=== PATIENT | male | born 1955 | race Caucasian/White ===

== ENCOUNTER 2024-01-28 11:56 | Emergency (ER) | payer SELFPAY ==
[2024-01-28 12:08] VITALS: BP 184/104; PULSE 76; RESP 18; TEMP 36.4; O2SAT 99; BMI 28.7
--- NOTE | 2024-01-28 12:19 | ECG_ITS ---
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 Measurements Intervals [place] Rate: 63 P: 68 NV: 148 QRS: 53 QRSD: 84 T: 53 QT: 429 QTc: 441 Interpretive Statements SINUS RHYTHM No previous ECG available for comparison Electronically Signed On 01-28-2024 14:05:51 CDT by Fabián Fontaine M.D. [id number]
--- NOTE | 2024-01-28 12:43 | ED_ITS ---
HPI - General Adult 2 General: Chief complaint: Recheck/Abnormal Lab/Rx Stated complaint: High BP Time Seen by Provider: 01/28/24 12:29 Source: patient Mode of arrival: ambulatory Limitations: no limitations History of Present Illness: Patient is a nice 68-year-old male who presents to ED today with complaint of hypertension. Patient states he was diagnosed with hypertension a few years ago and placed on Lisinopril 5mg. Looking at previous documentation notes like this was completed in 2020. He at some point had medication titrated up to 10mg daily and that is the dose he has been on for at least a year now. He states he does not routinely check his blood pressure however over the past few weeks he has not felt right stating he just feels blah and tired. He reportedly began checking his blood pressures and over the past several weeks they have continuously ran high some of which over 200s systolics. Patient states he took it upon himself and doubled his lisinopril dose to 20mg daily. He states blood pressures were still running high but he could sometimes get them 140s to 160s systolic with this dose. He denies chest pain, shortness of breath or difficulty breathing. He does not complain of a headache or visual changes. Onset (ago): week(s) Exacerbating factors: none Associated symptoms: Reports no associated symptoms; Deny chest pain, confusion, dyspnea, headache(s), malaise, palpitations or syncope Treatments prior to arrival: none Related Data Previous Rx's Medication Instructions Recorded amlodipine 5 mg tablet 5 mg PO DAILY #30 tabs 01/28/24 lisinopril 10 mg tablet 20 mg (2 x 10 mg) PO DAILY #60 tabs 01/28/24 Allergies Allergy/AdvReac Type Severity Reaction Status Date / Time No Known Allergies Allergy Verified 01/28/24 12:13 Review of Systems 2 Const: Reports: fatigue; Denies: fever(s), chills, body aches or malaise Eyes: Denies: change in vision, blurry vision, floaters or seeing flashes Card: Denies: chest pain, palpitations, edema, lightheadedness, syncope or pre-syncope Resp: Denies: dyspnea GI: Denies: abdominal pain Musc: Denies: back pain Neuro: Denies: headache(s), weakness in extremities, dizziness, confusion, behavioral changes, Slurred speech present or difficulty communicating thoughts PFSH ED 2 PFSH: Social History Smoking and tobacco/nicotine status: current every day tobacco/nicotine user Physical Exam 2 Const: COMMON NORMALS: no acute distress, average body habitus, patient oriented x3, no limitations, healthy appearing, alert and well nourished G ENERAL APPEARANCE: cooperative ORIENTATION/CONSCIOUSNESS: Yes awake, Yes oriented to person, Yes oriented to place and Yes oriented to time HENMT: FACE & SINUS: face symmetric Eye: GENERAL EYE: appearance normal, both eyes and all related structures and normal light reflex DIRECT OPHTHALMOSCOPY: Yes normal light reflex Neck/C-Spine: COMMON NORMALS: no JVD Resp: COMMON NORMALS: normal respiratory effort and clear to auscultation bilaterally AUSCULTATION: clear to auscultation bilaterally Cardio: COMMON NORMALS: no JVD, regular rate and regular rhythm RATE: r egular rate RHYTHM: regular rhythm Neuro: ELLIOTT COMA SCALE: document GCS findings Elliott coma scale eye opening: Spontaneous Elliott coma scale verbal response: Orientated Elliott coma scale motor response: Obey commands Elliott coma scale total score: 15 COMMON NORMALS: patient oriented x3, CN's II-XII intact bilaterally, moves all extremities, no focal motor deficits, no sensory deficits noted and gait normal SENSORIUM/ORIENTATION: Yes alert, Yes oriented to person, Yes oriented to place and Yes oriented to time Course 2 Vital Signs: Vital signs: Vital Signs Temperature 97.6 F 01/28/24 12:08 Pulse Rate 62 01/28/24 13:48 Respiratory Rate 16 01/28/24 13:48 Blood Pressure 161/100 01/28/24 13:48 Pulse Oximetry 97 01/28/24 13:48 Oxygen Delivery Me thod Room Air 01/28/24 13:23 MDM - General Adult Medical Decision Making Patient has no signs and symptoms consistent with a hypertensive emergency. He has longstanding/chronic hypertension. We will have him stay on his 20mg lisinopril that he has been doing over the last few weeks and add 5mg amlodipine. Recommend continue blood pressure log and follow-up with primary care in a week or so so they can further adjust medications based on response. Medical Records I reviewed the patient's medical records. Lab Data I reviewed the patient's lab results. 01/28/24 12:01/28/24 12: Laboratory Results WBC 7.62 10^3/uL (3.29-11.43) 01/28/24 12: RBC 5.38 10^6/uL (3.85-5.65) 01/28/24 12: Hgb 15.80 g/dL (11.27-16.99) 01/28/24 12: Hct 48.4 % (37-53) 01/28/24 12: MCV 90.0 fl (82-101) 01/28/24 12: MCH 29.4 pg (27-33) 01/28/24 12: MCHC 32.6 g/dL (30-55) 01/28/24 12: RDW 13.6 % (12.1-15.1) 01/28/24 12: Plt Count 284 10^3/cmm (157-399) 01/28/24 12: MPV 9.5 fL (7.4-10.4) 01/28/24 12: Neut % (Auto) 57.7 % 01/28/24 12: Lymph % (Auto) 31.5 % 01/28/24 12: [place] % (Auto) 8.1 % 01/28/24 12: Eos % (Auto) 1.4 % 01/28/24 12: Baso % (Auto) 0.9 % 01/28/24 12: Neut # (Auto) 4.39 10^3/uL (1.8-7.7) 01/28/24 12: Lymph # (Auto) 2.4 10^3/uL (0.8-4.8) 01/28/24 12:25 [place] # (Auto) 0.6 10^3/uL (0.2-0.9) 01/28/24 12: Eos # (Auto) 0.1 10^3/uL (0.0-0.8) 01/28/24 12: Baso # (Auto) 0.1 10^3/uL (0.0-0.1) 01/28/24 12: Nucleated RBC % (auto) 0 % 01/28/24 12:25 Nucleated RBCs # 0.0 /100WBC 01/28/24 12:25 Sodium 142 mmol/L (136-145) 01/28/24 12:25 Potassium 3.8 mmol/L (3.5-5.1) 01/28/24 12:25 Chloride 105 mmol/L (98-107) 01/28/24 12:25 Carbon Dioxide 27 mmol/L (22-29) 01/28/24 12:25 Anion Gap 13.8 (5-19) 01/28/24 12:25 BUN 15 mg/dL (8-23) 01/28/24 12:25 Creatinine 1.1 mg/dL (0.7-1.2) 01/28/24 12:25 GFR Calculation 66.8 mL/min (90-130) L 01/28/24 12:25 Glucose 99 mg/dL (65-115) 01/28/24 12:25 Calculated Osmolality 295 mOsm/kg (285-295) 01/28/24 12:25 Calcium 9.0 mg/dL (8.5-10.5) 01/28/24 12:25 Total Bilirubin 0.3 mg/dL (0.15-1.2) 01/28/24 12:25 AST 24 U/L (0-40) 01/28/24 12:25 ALT 25 U/L (0-41) 01/28/24 12:25 Alkaline Phosphatase 141 U/L (40-130) H 01/28/24 12:25 Total Protein 7.0 g/dL (6.6-8.7) 01/28/24 12:25 Albumin 4.1 g/dL (3.5-5.2) 01/28/24 12:25 Globulin 2.9 g/dL (1.3-4.6) 01/28/24 12:25 No radiology studies performed this visit Discharge Plan Discharge Patient Disposition: Home Clinical Impression: Hypertension Qualifiers: Hypertension type: unspecified Qualified Code(s): I10 - Essential (primary) hypertension Condition: Stable Prescriptions: New amlodipine 5 mg tablet 5 mg PO DAILY Qty: 30 0RF Changed lisinopril 10 mg tablet 20 mg PO DAILY Qty: 60 0RF Discharge Orders: Discharge ED (Routine); Ordered 01/28/24 Ordered By: Nallely Coles Referrals: Francois Marroquin MD [Primary Care Provider] - Patient Instructions: Chronic Hypertension (DC), Hypertension (ED) Activity Restrictions/Additional Instructions: As we discussed, we will change her blood pressure medication regimen and I want you to keep a blood pressure log over the next 1 to 2 weeks and follow-up with primary care so they can further adjust based on response. Need to return to the emergency department for severe chest pain, shortness of breath, difficulty breathing, headache, visual changes, severe abdominal pain, or any other concerns you may have. Coding Level of Care Code ED Underwriting Support Specialist for Dea Amaro
[2024-01-28 12:46] LABS: Basophils # 0.1 10^3/uL (0.0-0.1); Basophils % 0.9 %; Eosinophils # 0.1 10^3/uL (0.0-0.8); Eosinophils % 1.4 %; Hematocrit 48.4 % (37-53); Lymphocytes # 2.4 10^3/uL (0.8-4.8); Lymphocytes % 31.5 %; Mean Corpuscular HGB Conc 32.6 g/dL (30-55); Mean Corpuscular Hemoglobin 29.4 pg (27-33); Mean Platelet Volume 9.5 fL (7.4-10.4); Monocytes # 0.6 10^3/uL (0.2-0.9); Monocytes % 8.1 %; Neutrophils # 4.39 10^3/uL (1.8-7.7); Neutrophils % 57.7 %; Nucleated Red Blood Cells % 0 %; Platelet Count 284 10^3/cmm (157-399); Red Blood Count 5.38 10^6/uL (3.85-5.65); Red Cell Distribution Width 13.6 % (12.1-15.1); White Blood Count 7.62 10^3/uL (3.29-11.43)
[2024-01-28 13:03] LABS: Alanine Aminotransferase 25 U/L (0-41); Albumin Level 4.1 g/dL (3.5-5.2); Alkaline Phosphatase 141 U/L (40-130); Anion Gap 13.8 (5-19); Aspartate Amino Transferase 24 U/L (0-40); Blood Urea Nitrogen 15 mg/dL (8-23); Carbon Dioxide 27 mmol/L (22-29); Chloride 105 mmol/L (98-107); Creatinine Clr Calc Pharmacy 73.8177; Globulin 2.9 g/dL (1.3-4.6); Glomerular Filtration Rate 66.8 mL/min (90-130); Glucose 99 mg/dL (65-115); Osmolality Calculated 295 mOsm/kg (285-295); Potassium 3.8 mmol/L (3.5-5.1); Sodium 142 mmol/L (136-145); Total Bilirubin 0.3 mg/dL (0.15-1.2)
[2024-01-28] MEDS: hyDRALAzine 20 mg/mL INJ 1 mL 5 MG IVP (13:13)
[2024-01-28] MEDS: enalaprilat 2.5 mg/2 mL SDV 0.625 MG IVP (13:13)
[2024-01-28 13:23] VITALS: BP 155/100; PULSE 65; RESP 16; O2SAT 97
[2024-01-28 13:48] VITALS: BP 161/100; PULSE 62; RESP 16; O2SAT 97
== END 2024-01-28 13:48 | disposition home or self-care (01) ==
PROVIDERS: Emergency Medicine; Emergency Provider Physician Assistant; PCP Urology
DX: I10 Essential (primary) hypertension (principal); Z72.0 Tobacco use
CPT/HCPCS: 80053; 85025; 93005; 96374; 96375; 99284; J0360

== ENCOUNTER 2024-11-09 14:32 | Inpatient (IN) | payer SELFPAY ==
[2024-11-09 14:38] VITALS: BP 164/82; PULSE 82; RESP 16; TEMP 36.3; O2SAT 99
[2024-11-09 16:25] LABS: Hematocrit 43.2 % (37-53); Hemoglobin 14.50 g/dL (11.27-16.99); Mean Corpuscular HGB Conc 33.6 g/dL (30-55); Mean Corpuscular Hemoglobin 28.9 pg (27-33); Mean Corpuscular Volume 86.2 fl (82-101); Nucleated Red Blood Cells % 0 %; Platelet Count 267 10^3/cmm (157-399); Red Blood Count 5.01 10^6/uL (3.85-5.65); White Blood Count 10.51 10^3/uL (3.29-11.43)
[2024-11-09 16:42] LABS: Alanine Aminotransferase 50 U/L (0-41); Albumin Level 4.0 g/dL (3.5-5.2); Alkaline Phosphatase 189 U/L (40-130); Anion Gap 16.7 (5-19); Aspartate Amino Transferase 26 U/L (0-40); Blood Urea Nitrogen 13 mg/dL (8-23); Calcium 8.9 mg/dL (8.5-10.5); Carbon Dioxide 24 mmol/L (22-29); Chloride 102 mmol/L (98-107); Creatinine Clr Calc Pharmacy 77.1625; Globulin 3.4 g/dL (1.3-4.6); Glucose 89 mg/dL (65-115); Lipase 30 U/L (13-60); Osmolality Calculated 288 mOsm/kg (285-295); Potassium 3.7 mmol/L (3.5-5.1); Sodium 139 mmol/L (136-145); Total Protein 7.4 g/dL (6.6-8.7)
[2024-11-09 16:51] LABS: Glucose Urine UA Negative (Normal); Nitrate Urine Negative (Negative); Specific Gravity, Urine 1.019 (1.005-1.030)
[2024-11-09 16:53] LABS: Add Urine Microscopic? YES
--- NOTE | 2024-11-09 17:02 | CTR_ITS ---
PROCEDURE INFORMATION: Exam: CT Abdomen And Pelvis With Contrast Exam date and time: 11/09/2024 5:09 PM Age: 68 years old Clinical indication: Abdominal pain; Additional info: Diffuse abdominal pain TECHNIQUE: Imaging protocol: Computed tomography of the abdomen and pelvis with contrast. Radiation optimization: All CT scans at this facility use at least one of these dose optimization techniques: automated exposure control; mA and/or kV adjustment per patient size (includes targeted exams where dose is matched to clinical indication); or iterative reconstruction. Contrast material: OMNI 350; Contrast volume: 100 ml; Contrast route: INTRAVENOUS (IV); COMPARISON: No relevant prior studies available. RADIATION DOSE METRICS: Total DLP (mGy-cm): 865.75 FINDINGS: Liver: Normal. No mass. Gallbladder and biliary ducts: Normal. No calcified stones. No ductal dilation. Pancreas: Normal. No ductal dilation. Spleen: There are multiple punctate splenic calcifications consistent with old granulomatous disease. Adrenal glands: Normal. No mass. Kidneys and ureters: There are multiple simple renal cysts bilaterally of varying size. There is a nonobstructing 2 mm calculus in the midpole region of the left kidney. Stomach and bowel: There is a short segment of circumferential bowel wall thickening in the distal ascending colon accompanied by paracolic fat stranding. There are 3 extraluminal tiny air bubbles posterior to the colon, image 63 series 3. No paracolic abscess however. Appendix: No evidence of appendicitis. Intraperitoneal space: See Stomach and bowel finding. Vasculature: Unremarkable. No abdominal aortic aneurysm. Lymph nodes: Unremarkable. No enlarged lymph nodes. Urinary bladder: Unremarkable as visualized. Reproductive: Unremarkable as visualized. Bones/joints: Grade 1 retrolisthesis at L3-L4 with moderate disc degeneration and [id number] bilateral foramina stenosis. Soft tissues: Unremarkable. CT/CT abdomen pelvis w con* [id number] IMPRESSION: 1. Acute diverticulitis of the distal descending colon with evidence of localized microperforation without abscess formation. 2. Other findings as above. COMMENTS: Consistent with the [employer]'s Incidental Findings Committee white paper (J Am Marcos Radiol 2018): Any incidental renal lesion less than 1 cm or classified as too small to characterize, or any incidental cystic renal lesion characterized as simple-appearing, is likely benign. No follow-up imaging is recommended for these lesions per consensus recommendations based on imaging criteria.
[2024-11-09] MEDS: iohexol 350 mg/mL 500 mL Btl (per mL) IV (17:11)
--- NOTE | 2024-11-09 17:56 | ED_ITS ---
HPI - Abdominal Pain 2 General: Chief Complaint: Abdominal Pain Stated Complaint: pain in abdomen Time Seen by Provider: 11/09/24 16:08 History of Present Illness: Brendon Momin presents to the emergency department with a chief complaint of pain in his right side that began yesterday morning. The patient reports that the pain started abruptly yesterday morning. He describes the pain as located on his right side and notes that it worsens with pressure. He recalls helping load an air compressor a couple of days ago, suggesting a possible muscle strain as a cause for his pain. The patient denies any associated symptoms such as fever, chills, nausea, or vomiting. He mentions experiencing intermittent diarrhea, which he attributes to his eating habits and typically lasts only a couple of days. He denies any urinary symptoms such as pain with urination, frequency, urgency, or hesitation, though he does mention occasional need to urinate again shortly after voiding, which he considers typical for him. Related Data Previous Rx's ?Medication ?Instructions ?Recorded amlodipine 5 mg tablet 5 mg PO DAILY #30 tabs 01/27 lisinopril 10 mg tablet 20 mg (2 x 10 mg) PO DAILY # 60 tabs 01/28/24 Allergies Allergy/AdvReac Type Severity Reaction Status Date / Time No Known Allergies Allergy Verified 01/28/24 12:13 Review of Systems 2 General: Reports: 10 or more systems reviewed and unremarkable except in HPI and below PFSH ED 2 PFSH: Medical History (Updated 11/09/24 @ 18:54 by Kwan Narvaez MD) Smoking greater than 40 pack years Hypertension Social History (Updated 11/09/24 @ 18:54 by Kwan Narvaez MD) Smoking and tobacco/nicotine status: current every day tobacco/nicotine user Alcohol intake: never Substance/Drug Use: never Adopted: No Caregiver/support person: Yes Lives independently: Yes Household members: family Housing: House service: Yes Physical Exam 2 Const: COMMON NORMALS: no acute distress, patient oriented x3, healthy appearing, alert and well nourished HENMT: COMMON NORMALS: normocephalic HEAD & SCALP: normocephalic Eye: COMMON NORMALS: EOMs intact bilaterally Neck/C-Spine: COMMON NORMALS: full ROM and supple Resp: COMMON NORMALS: normal respiratory effort, No retractions and clear to auscultation bilaterally AUSCULTATION: clear to auscultation bilaterally Cardio: COMMON NORMALS: regular rate, regular rhythm, No gallops present (Cardio) and No murmurs present (Cardio) RATE: regular rate RHYTHM: r egular rhythm GI: COMMON NORMALS: Soft to palpation PALPATION: Yes Soft to palpation, Yes Tenderness to palpation present (GI) Details: LLQ, No Guarding due to palpation present (GI) and No Rebound tenderness present Extremity: GENERAL: Yes normal exam except as noted Neuro: COMMON NORMALS: patient oriented x3 SENSORIUM/ORIENTATION: Yes alert Skin: COMMON NORMALS: no rashes or lesions noted GENERAL SKIN EXAM: no rashes or lesions noted Course 2 Vital Signs: Vital signs: Vital Signs Temperature 97.3 F L 11/09/24 14:38 Pulse Rate 73 11/09/24 18:03 Respiratory Rate 16 11/09/24 18:03 Blood Pressure 153/102 11/09/24 18:03 Pulse Oximetry 95 11/09/24 18:03 Oxygen Delivery Me thod Room Air 11/09/24 18:03 MDM - Abdominal Pain Medical Decision Making 68-year-old male presents emergency department for evaluation of left lower quadrant pain that started 1 day prior to presenting to the emergency department. He was in his usual state of health. He was concerned maybe that he had strained a muscle on that side trying to lift something heavy yesterday. His vital signs demonstrate hypertension with a slightly low temperature. Physical exam was significant for left lower quadrant tenderness without rebound or guarding. CT scan demonstrated diverticulitis with microperforation without abscess. Patient was started on Rocephin and Flagyl. Discussed with the patient risks and benefits of admission. He was in agreement that admission was appropriate at this time. Case discussed with Dr. Carmichael who agreed to admit the patient. He recommended surgery consult. Case was discussed with Dr. Moss who agreed to consult. Patient was then admitted to the hospital. Lab Data 11/09/24 16:14 11/09/24 16:14 Labs/Radiology: Radiology Impressions Abdomen/Pelvis CT 11/09/24 17:02 IMPRESSION: 1. Acute diverticulitis of the distal descending colon with evidence of localized microperforation without abscess formation. 2. Other findings as above. COMMENTS: Consistent with the [employer]'s Incidental Findings Committee white paper (J Am Marcos Radiol 2018): Any incidental renal lesion less than 1 cm or classified as too small to characterize, or any incidental cystic renal lesion characterized as simple-appearing, is likely benign. No follow-up imaging is recommended for these lesions per consensus recommendations based on imaging criteria. Laboratory Results WBC 10.51 10^3/uL (3.29-11.43) 11/09/24 16:14 RBC 5.01 10^6/uL (3.85-5.65) 11/09/24 16:14 Hgb 14.50 g/dL (11.27-16.99) 11/09/24 16:14 Hct 43.2 % (37-53) 11/09/24 16:14 MCV 86.2 fl (82-101) 11/09/24 16:14 MCH 28.9 pg (27-33) 11/09/24 16:14 MCHC 33.6 g/dL (30-55) 11/09/24 16:14 RDW 13.7 % (12.1-15.1) 11/09/24 16:14 Plt Count 267 10^3/cmm (157-399) 11/09/24 16:14 MPV 9.2 fL (7.4-10.4) 11/09/24 16:14 Neut % (Auto) 69.5 % 11/09/24 16:14 Lymph % (Auto) 20.0 % 11/09/24 16:14 [place] % (Auto) 8.2 % 11/09/24 16:14 Eos % (Auto) 1.0 % 11/09/24 16:14 Baso % (Auto) 0.7 % 11/09/24 16:14 Neut # (Auto) 7.31 10^3/uL (1.8-7.7) 11/09/24 16:14 Lymph # (Auto) 2.1 10^3/uL (0.8-4.8) 11/09/24 16:14 [place] # (Auto) 0.9 10^3/uL (0.2-0.9) 11/09/24 16:14 Eos # (Auto) 0.1 10^3/uL (0.0-0.8) 11/09/24 16:14 Baso # (Auto) 0.1 10^3/uL (0.0-0.1) 11/09/24 16:14 Nucleated RBC % (auto) 0 % 11/09/24 16:14 Nucleated RBCs # 0.0 /100WBC 11/09/24 16:14 Sodium 139 mmol/L (136-145) 11/09/24 16:14 Potassium 3.7 mmol/L (3.5-5.1) 11/09/24 16:14 Chloride 102 mmol/L (98-107) 11/09/24 16:14 Carbon Dioxide 24 mmol/L (22-29) 11/09/24 16:14 Anion Gap 16.7 (5-19) 11/09/24 16:14 BUN 13 mg/dL (8-23) 11/09/24 16:14 Creatinine 1.1 mg/dL (0.7-1.2) 11/09/24 16:14 GFR Calculation 66.8 mL/min (90-130) L 11/09/24 16:14 Glucose 89 mg/dL (65-115) 11/09/24 16:14 Calculated Osmolality 288 mOsm/kg (285-295) 11/09/24 16:14 Lactic Acid 1.2 mmol/L (0.5-2.2) 11/09/24 16:15 Calcium 8.9 mg/dL (8.5-10.5) 11/09/24 16:14 Total Bilirubin 0.3 mg/dL (0.15-1.2) 11/09/24 16:14 AST 26 U/L (0-40) 11/09/24 16:14 ALT 50 U/L (0-41) H 11/09/24 16:14 Alkaline Phosphatase 189 U/L (40-130) H 11/09/24 16:14 Total Protein 7.4 g/dL (6.6-8.7) 11/09/24 16:14 Albumin 4.0 g/dL (3.5-5.2) 11/09/24 16:14 Globulin 3.4 g/dL (1.3-4.6) 11/09/24 16:14 Lipase 30 U/L (13-60) 11/09/24 16:14 Urine Color Yellow (Yellow) 11/09/24 16:42 Urine Appearance Clear (CLEAR) 11/09/24 16:42 Urine pH 6.0 (5-7) 11/09/24 16:42 Ur Specific [place] 1.019 (1.005-1.030) 11/09/24 16:42 Urine Protein 1+ (Negative) A 11/09/24 16:42 Urine Glucose (UA) Negative (Normal) 11/09/24 16:42 Urine Ketones Trace (Negative) 11/09/24 16:42 Urine Blood 2+ (Negative) A 11/09/24 16:42 Urine Nitrate Negative (Negative) 11/09/24 16:42 Urine Bilirubin Negative (Negative) 11/09/24 16:42 Urine Urobilinogen 1.0 mg/dL (Negative) 11/09/24 16:42 Ur Leukocyte Esterase 1+ (Negative) A 11/09/24 16:42 Urine RBC 11-20 /hpf (0-2) H 11/09/24 16:42 Urine WBC 21-50 /hpf (0-5) H 11/09/24 16:42 Ur Squamous Epith Cells 0-5 /hpf (0-5) 11/09/24 16:42 Amorphous Sediment Not Reportable 11/09/24 16:42 Urine Bacteria 1+ /hpf (NONE) H 11/09/24 16:42 Hyaline Casts 1.65 /lpf 11/09/24 16:42 All radiology interpretation(s) finalized by discharge Discharge Plan Discharge Patient Disposition: Admitted As Inpatient Clinical Impression: Diverticulitis Condition: Stable Coding Level of Care Code ED Guard Sergeant for Dea Amaro
[2024-11-09 18:03] VITALS: BP 153/102; PULSE 73; RESP 16; O2SAT 95
--- NOTE | 2024-11-09 18:47 | P.CONIM_ITS ---
Providers/Reason For Consult 2 Consulting Physician/Specialty*: General Surgery Reason for Consult*: Acute diverticulitis with perforation History of Present Illness History of Present Illness Brendon Momin Jr is a 68 year old male who presents to the hospital complaining of abdominal pain in the left lower quadrant and diarrhea for the last 3 days. Patient endorses pain starting today, denies fever chills or any other systemic symptoms. Workup in the ER show evidence of acute diverticulitis with microperforation. This is first episode, patient has never had a colonoscopy in the past. Review of Systems 2 General: Reports: 10 or more systems reviewed and unremarkable except in HPI and below Medications/Allergies Home Medications ?Medication ?Instructions ?Recorded ?Confirmed ?Last Taken ?Type amlodipine 5 mg tablet 5 mg PO DAILY #30 tabs 01/27 Unknown Rx lisinopril 10 mg tablet 20 mg (2 x 10 mg) PO DAILY # 60 tabs 01/28/24 Unknown Rx Allergies Allergy/AdvReac Type Severity Reaction Status Date / Time No Known Allergies Allergy Verified 01/28/24 12:13 PFSH Acute 2 PFSH: Social History Smoking and tobacco/nicotine status: current every day tobacco/nicotine user Vitals/I&O/Wt Last Vital Signs Temp 97.3 F L 11/09/24 14:38 Pulse 73 11/09/24 18:03 Resp 16 11/09/24 18:03 BP 153/102 11/09/24 18:03 Pulse Ox 95 11/09/24 18:03 O2 Del Method Room Air 11/09/24 18:03 Weight last 48 hrs Weight 220 lb Physical Exam 2 Narrative: General : Patient is well developed , no acute distress, oriented x3 Head : Normal cephalic, a-traumatic. Nose : Mucous membranes are without erythema. Lungs : Equal chest rise bilaterally, no use of accessory muscles, trachea is midline. CV : Rate and rhythm are normal. Abdomen : Soft, there is tenderness in the left lower quadrant. No rebound tenderness. Extremities : No edema. Upper extremities are normal bilaterally. Back : non-tender to palpation, no CVA tenderness. Data 11/09/24 16:14 11/09/24 16:14 A&P Assessment and plan 1. Diverticulitis of colon with perforation: Plan: 68-year-old male with acute diverticulitis with microperforation, laboratory workup is unremarkable, vital signs are normal. He has abdominal pain but no peritonitis. Patient is a good candidate for nonoperative management with IV fluids and antibiotics as well as bowel rest. He can be on a clear liquid diet today and depending on how he is feeling by the morning we may advance to a full liquid diet or a GI soft diet. I had extensive discussion with the patient regarding the findings, most likely scenario is that the symptoms will be controlled with current management and then he will need to repeat a colonoscopy in 6 to 8 weeks. In the case of recurrent episodes in the future he most likely will require a sigmoid colectomy. I also discussed the possibility of worsening of symptoms and changes in clinical status in which case he will require a Tom procedure although this is unlikely at this time. Patient shows understanding agrees with the plan, case was discussed with medical team. Will continue to follow-up in a daily basis PDMP PDMP Reviewed: Not Reviewed Coding Level of Care Code Acute Code for [facility] Diagnoses Diverticulitis of colon with perforation K57.20
[2024-11-09 18:50] LABS: Lactic Sepsis W/Reflex 1.2 mmol/L (0.5-2.2)
--- NOTE | 2024-11-09 18:52 | P.HP_ITS ---
Providers/Chief Complaint 2 Chief Complaint: pain in abdomen History of Present Illness Brendon Momin Jr is a 68 year old male with past medical history of hypertension presents to the ER today because of ongoing left lower quadrant abdominal pain which started acutely today morning. Patient states he has been having diarrhea on and off for last 3 to 4 days with abdominal pain but today pain was unbearable so he presented to the ER. In the ER CT abdomen/pelvis showed diverticulitis with microperforation hence hospitalist service was consulted for further evaluation and management. Patient on examination laying comfortably in bed having tender abdomen. Review of Systems 2 General: Reports: 10 or more systems reviewed and unremarkable except in HPI and below Const: Denies: fever(s), chills, body aches, change in appetite, change in weight, malaise, night sweats, diaphoresis, change in sleep pattern, daytime sleepiness or snoring Eyes: Denies: change in vision, blurry vision, photophobia, eye discomfort or eye discharge ENMT: Denies: throat pain, enlarged tonsils, hoarseness, mouth pain, oral sores, dry mouth, tinnitus, nasal congestion or post nasal drip Card: Denies: chest pain, palpitations, irregular heart rhythm, edema, swelling of feet/ankles, lightheadedness, syncope, pre-syncope, dyspnea on exertion, orthopnea, leg pain with exertion or acrocyanosis Resp: Denies: dyspnea, productive cough, non-productive cough, wheezing, stridor, pain on inspiration, change in phlegm color, hemoptysis or chest congestion GI: Denies: abdominal pain, nausea, vomiting, hematemesis, coffee ground emesis, dysphagia, heartburn, diarrhea, constipation, bloating, GI cramping, change in bowel habits, pain on defecation, hematochezia or melena : Denies: flank pain, difficulty urinating, dysuria, urinary frequency, urinary urgency, urinary hesitancy, urinary dribbling, difficulty starting urination, change in urine stream, nocturia or hematuria Musc: Denies: neck pain, back pain, extremity pain, joint pain, joint swelling, joint redness, joint stiffness or limited range of motion Neuro: Denies: headache(s), numbness in extremities, weakness in extremities, sensory changes, lack of coordination, difficulty walking, frequent falls, dizziness, vertigo, confusion, Slurred speech present, difficulty communicating thoughts or seizure-like activity Psych: Denies: anxiety, depression, mood swings, panic attacks, hopelessness or irritability Endo: Denies: polyuria, polydipsia, tired all the time, cold intolerance, excessive sweating, flushing or heat intolerance [place]ont/Lymph: Denies: easy bruising or easy bleeding All/Imm: Denies: tongue swelling, facial swelling or acute wheezing Medications/Allergies Home Medications ?Medication ?Instructions ?Recorded ?Confirmed ?Last Taken ?Type amlodipine 5 mg tablet 5 mg PO DAILY #30 tabs 01/27 Unknown Rx lisinopril 10 mg tablet 20 mg (2 x 10 mg) PO DAILY # 60 tabs 01/28/24 Unknown Rx Allergies Allergy/AdvReac Type Severity Reaction Status Date / Time No Known Allergies Allergy Verified 01/28/24 12:13 PFSH Acute 2 PFSH: Medical History (Updated 11/09/24 @ 18:54 by Kwan Narvaez MD) Smoking greater than 40 pack years Hypertension Social History (Updated 11/09/24 @ 18:54 by Kwan Narvaez MD) Smoking and tobacco/nicotine status: current every day tobacco/nicotine user Alcohol intake: never Substance/Drug Use: never Adopted: No Caregiver/support person: Yes Lives independently: Yes Household members: family Housing: House service: Yes Vitals/I&O/Wt Last Vital Signs Temp 97.3 F L 11/09/24 14:38 Pulse 73 11/09/24 18:03 Resp 16 11/09/24 18:03 BP 153/102 11/09/24 18:03 Pulse Ox 95 11/09/24 18:03 O2 Del Method Room Air 11/09/24 18:03 Weight last 48 hrs Weight 99.79 kg Physical Exam 2 Narrative: General: No acute distress, AO x3 HEENT: PERRLA, pupils bilaterally equal and reactive Chest: Normal vesicular breath sounds, no added sounds, equal good air entry bilaterally CVS: S1-S2 regular, no murmurs, no tachycardia, no gallops, no rubs Abdomen: Soft, obese, tender in left lower quadrant , no organomegaly, bowel sounds present Neuro: No focal deficits, no facial deformity, AO x3, power 5/5 in all limbs Data 11/09/24 16:14 11/09/24 16:14 A&P Assessment and plan 1. Diverticulitis of colon with perforation: Seen on CT abdomen pelvis. Follow-up blood culture. Check stool studies. Trend procalcitonin, check lactate Empirically start patient on IV Zosyn. Will plan for IV antibiotic course for 2 to 3 days and eventually transition to oral antibiotics. Monitor for abscess formation. Bowel rest with clear liquid diet for now. Surgery has been consulted from the ER. Appreciate recommendations. Patient will eventually need colonoscopy as an outpatient within next 4 to 6 weeks. Normal saline at 100 cc/h. 2. Hypertension: Goal blood pressure less than 140/90 mmHg. For now continue with home dose of amlodipine and lisinopril. Will uptitrate as for goal blood pressure. Plan: Full code Clear liquid diet Protonix OPD prophylaxis Heparin 5000 every 12 hourly for DVT prophylaxis. PDMP PDMP Reviewed: Not Reviewed Attestations 2 Medical Necessity Statement*: Admission for than 2 midnights for management of diverticulitis of colon patient without abscess formation Diagnoses Diverticulitis of colon with perforation K57.20 Hypertension I10
[2024-11-09 18:56] LABS: Procalcitonin 0.12 ng/mL (0-0.5)
[2024-11-09] MEDS: piperacillin-tazobactam 3.375 GM in sodium chloride 0.9% (plus) 50 ML IV (19:06)
[2024-11-09 20:32] VITALS: BP 163/80; PULSE 86; RESP 18; TEMP 36.6; O2SAT 94
[2024-11-09 21:01] LABS: Estmated Average Glucose 123; Hemoglobin A1C 5.9 % (4.0-6.0)
[2024-11-09] MEDS: heparin 5,000 unit/mL INJ 1 mL 5000 UNIT SUBCUT (21:19)
[2024-11-09] MEDS: pantoprazole 40 mg SDV IVP (21:21)
[2024-11-09 21:22] LABS: Iron 61 ug/dL (59-158); Thyroid Stimulating Hormone 1.89 uIU/mL (0.27-4.20); Total Iron Binding Capacity 286 mcg/dl; Unsaturated Iron Binding 225 ug/dL (112-347); Vitamin B12 475 pg/mL (232-1245)
[2024-11-09 21:26] VITALS: BMI 31.5
[2024-11-09 22:49] VITALS: O2SAT 95
[2024-11-10] VITALS (7 sets, daily range): BP systolic 119–158; BP diastolic 69–83; PULSE 67–84; RESP 15–18; TEMP 36.3–36.7; O2SAT 93–98
--- NOTE | 2024-11-10 01:35 | PC.NURSE ---
Pt has been offered pain meds and he declines to have any at this time. Pt verbalized understanding that they are available if he needs them.
[2024-11-10] MEDS: piperacillin-tazobactam 3.375 GM in sodium chloride 0.9% (plus) 50 ML IV ×3 (02:28→18:33)
[2024-11-10 06:10] LABS: Hematocrit 40.3 % (37-53); Hemoglobin 13.60 g/dL (11.27-16.99); Mean Corpuscular HGB Conc 33.7 g/dL (30-55); Mean Corpuscular Hemoglobin 29.5 pg (27-33); Mean Corpuscular Volume 87.4 fl (82-101); Nucleated Red Blood Cells % 0 %; Platelet Count 259 10^3/cmm (157-399); Red Blood Count 4.61 10^6/uL (3.85-5.65); White Blood Count 9.27 10^3/uL (3.29-11.43)
[2024-11-10 06:32] LABS: Alanine Aminotransferase 41 U/L (0-41); Albumin Level 3.4 g/dL (3.5-5.2); Alkaline Phosphatase 175 U/L (40-130); Anion Gap 16.0 (5-19); Aspartate Amino Transferase 21 U/L (0-40); Blood Urea Nitrogen 12 mg/dL (8-23); Calcium 8.4 mg/dL (8.5-10.5); Carbon Dioxide 21 mmol/L (22-29); Chloride 104 mmol/L (98-107); Cholesterol 164 mg/dL (0-200); Creatinine Clr Calc Pharmacy 70.7323; Globulin 3.3 g/dL (1.3-4.6); Glucose 95 mg/dL (65-115); HDL Cholesterol 39 mg/dL (60-100); Magnesium 1.8 mg/dL (1.7-2.3); Osmolality Calculated 284 mOsm/kg (285-295); Potassium 4.0 mmol/L (3.5-5.1); Sodium 137 mmol/L (136-145); Total Protein 6.7 g/dL (6.6-8.7); Triglycerides 174 mg/dL (0-150)
[2024-11-10 06:35] LABS: Procalcitonin 0.12 ng/mL (0-0.5)
--- NOTE | 2024-11-10 06:52 | P.PN_ITS ---
Subjective 2 Subjective: Today's Hospital day 1, patient is doing better. No significant diarrhea over the last 12 hours. Abdominal pain is improving although cracking still operator. Vitals/I&O/Wt Last Vital Signs Temp 97.9 F 11/10/24 03:32 Pulse 82 11/10/24 03:32 Resp 18 11/10/24 03:32 BP 154/80 11/10/24 03:32 Pulse Ox 95 11/10/24 03:32 O2 Del Method Room Air 11/09/24 22:49 11/09/24 11/09/24 11/10/24 14:59 22:59 06:59 Intake Total 290 / 290 290 / 580 Output Total 300 / 300 1030 / 1330 Balance -10 / -10 -740 / -750 Weight last 48 hrs Weight 220 lb Weight 220 lb Weight 220 lb Physical Exam 2 GI: OTHER: Abdominal exam is benign abdomen is soft there is mild tenderness palpation left lower quadrant Data 11/10/24 05:38 11/10/24 05:38 Micro: Microbiology 11/09/24 18:53 Blood Culture - Preliminary Blood SPECIMEN COLLECTED 11/09/24 18:50 Blood Culture - Preliminary Blood SPECIMEN COLLECTED A&P Assessment and plan 1. Diverticulitis of colon with perforation: Plan: Patient showing excellent progression his vital signs are stable normal white count this morning and improved abdominal exam. He will be allowed to transition to a full liquid diet, the goal is to transition him to a GI soft tomorrow before discharge. He can then complete the 7 to 10-day course of outpatient antibiotics and will plan for colonoscopy 6 to 8 weeks after this initial episode subsides. PDMP PDMP Reviewed: Not Reviewed Attestations 2 Medical Necessity Statement*: Per medical team Coding Level of Care Code Acute Code for [facility] Diagnoses Diverticulitis of colon with perforation K57.20
[2024-11-10] MEDS: heparin 5,000 unit/mL INJ 1 mL 5000 UNIT SUBCUT ×2 (08:20→21:03)
--- NOTE | 2024-11-10 16:19 | P.PN_ITS ---
Subjective 2 Subjective: 68-year-old male states his ab dominal pain is much improved. He has not passed gas or stool but states he has only had liquid so far and did not eat much on Sunday and Sunday. Patient states he has never had a colonoscopy and does eat mostly meat as he is single he has not had a problem with constipation in general. Vitals/I&O/Wt Last Vital Signs Temp 97.4 F L 11/10/24 11:26 Pulse 75 11/10/24 16:00 Resp 16 11/10/24 16:00 BP 135/79 11/10/24 16:00 Pulse Ox 93 11/10/24 16:00 O2 Del Method Room Air 11/10/24 16:00 11/10/24 11/10/24 11/10/24 06:59 14:59 22:59 Intake Total 290 / 580 2720 / 2720 Output Total 1030 / 1330 Balance -740 / -750 2720 / 2720 Weight last 48 hrs Weight 99.79 kg Weight 99.79 kg Weight 99.79 kg Physical Exam 2 Narrative: General well-developed well-nourished male in no acute cardiopulmonary stress CV regular rate and rhythm Lungs clear to auscultation bilaterally Abdomen positive bowel tones soft he has mild left [place]ak umbilical and left lower quadrant tenderness but no rebound abdomen is obese and protuberant Calves no tenderness cords pretibial edema Mood and affect normal Data 11/10/24 05:38 11/10/24 05:38 Micro: Microbiology 11/09/24 18:53 Blood Culture - Preliminary Blood SPECIMEN COLLECTED 11/09/24 18:50 Blood Culture - Preliminary Blood SPECIMEN COLLECTED A&P Assessment and plan 1. Diverticulitis of colon with perforation: Continue Zosyn overnight and potentially discharge home on Augmentin tomorrow to finish 10-day course 2. Hypertension: Goal blood pressure less than 140/90 mmHg. Continue with home dose of amlodipine and lisinopril. Blood pressure is within range 3. Smoking greater than 40 pack years: Counseled patient regarding cardiovascular disease and smoking and encouraged him to quit smoking. He says he smokes 4 packs/week and thinks he can quit Plan: Full code Full liquid diet Protonix changed to p.o. Heparin 5000 every 12 hourly for DVT prophylaxis. PDMP PDMP Reviewed: Not Reviewed Attestations 2 Medical Necessity Statement*: Patient will be monitored overnight with plans for discharge tomorrow if tolerating advancement in diet Coding Level of Care Code 46806 Diagnoses Diverticulitis of colon with perforation K57.20 Hypertension I10 Hypertension type: unspecified Smoking greater than 40 pack years F17.210 Time Spent (min) 33
[2024-11-11] MEDS: piperacillin-tazobactam 3.375 GM in sodium chloride 0.9% (plus) 50 ML IV (02:30)
[2024-11-11 04:00] VITALS: BP 116/74; PULSE 68; RESP 16; TEMP 36.7; O2SAT 97
[2024-11-11 05:30] LABS: Hematocrit 39.6 % (37-53); Hemoglobin 13.30 g/dL (11.27-16.99); Mean Corpuscular HGB Conc 33.6 g/dL (30-55); Mean Corpuscular Hemoglobin 29.6 pg (27-33); Mean Corpuscular Volume 88.0 fl (82-101); Nucleated Red Blood Cells % 0 %; Platelet Count 255 10^3/cmm (157-399); Red Blood Count 4.50 10^6/uL (3.85-5.65); White Blood Count 8.00 10^3/uL (3.29-11.43)
[2024-11-11 06:11] LABS: Alanine Aminotransferase 39 U/L (0-41); Albumin Level 3.4 g/dL (3.5-5.2); Alkaline Phosphatase 165 U/L (40-130); Anion Gap 14.9 (5-19); Aspartate Amino Transferase 22 U/L (0-40); Blood Urea Nitrogen 9 mg/dL (8-23); Calcium 8.7 mg/dL (8.5-10.5); Carbon Dioxide 27 mmol/L (22-29); Chloride 102 mmol/L (98-107); Creatinine Clr Calc Pharmacy 69.6592; Globulin 3.4 g/dL (1.3-4.6); Glucose 105 mg/dL (65-115); Magnesium 2.0 mg/dL (1.7-2.3); Osmolality Calculated 289 mOsm/kg (285-295); Potassium 3.9 mmol/L (3.5-5.1); Sodium 140 mmol/L (136-145); Total Protein 6.8 g/dL (6.6-8.7)
--- NOTE | 2024-11-11 07:16 | P.PN_ITS ---
Subjective 2 Subjective: 68-year-old male with perforated diverti culitis. He is doing well over the last 24 hours, abdominal pain has almost completely resolved. No diarrhea over the last 24 hours. Vitals/I&O/Wt Last Vital Signs Temp 98.0 F 11/11/24 04:00 Pulse 68 11/11/24 04:00 Resp 16 11/11/24 04:00 BP 116/74 11/11/24 04:00 Pulse Ox 97 11/11/24 04:00 O2 Del Method Room Air 11/11/24 04:00 11/10/24 11/11/24 11/11/24 22:59 06:59 14:59 Intake Total 1020 / 3740 1117.5 / 4857.5 Output Total 1000 / 1000 925 / 1925 Balance 20 / 2740 192.5 / 2932.5 Weight last 48 hrs Weight 213 lb Weight 220 lb Weight 220 lb Weight 220 lb Physical Exam 2 GI: OTHER: Abdominal examination is benign with abdomen that soft nontender nondistended. Data 11/11/24 04:56 11/11/24 04:56 Micro: Microbiology 11/09/24 18:53 Blood Culture - Preliminary Blood NEGATIVE TO DATE 11/09/24 18:50 Blood Culture - Preliminary Blood NEGATIVE TO DATE A&P Assessment and plan 1. Diverticulitis of colon with perforation: Plan: Excellent progression. Normal white count normal laboratory workup and normal vital signs. Abdominal exam is improved. Patient will be able to receive GI soft diet today and if tolerating he can be discharged on GI soft diet for the next 4 weeks. He should also continue once a day MiraLAX to help with bowel movements and to prevent constipation. He can return to the clinic in 2 weeks and at that time we will discuss the possibility of colonoscopy in 6 to 8 weeks. Patient will also benefit from additional 5 to 7 days of antibiotic as outpatient PDMP PDMP Reviewed: Not Reviewed Attestations 2 Medical Necessity Statement*: Per medical team Coding Level of Care Code Acute Code for [facility] Diagnoses Diverticulitis of colon with perforation K57.20
[2024-11-11 07:46] VITALS: BP 139/90; PULSE 67; RESP 17; TEMP 36.7; O2SAT 95
[2024-11-11] MEDS: polyethylene glycol 3350 Pkt 17 gm PO (08:04)
[2024-11-11] MEDS: heparin 5,000 unit/mL INJ 1 mL 5000 UNIT SUBCUT (08:04)
[2024-11-11 11:28] VITALS: BP 140/89; PULSE 65; RESP 15; TEMP 36.3; O2SAT 96
--- NOTE | 2024-11-11 11:55 | PM.DCS ---
Discharge Providers Date of Admission: 11/09/24 18:32 Date of Discharge: November 11, 2024 Attending Provider at Admission: Kwan Narvaez MD Attending Provider at Discharge: Dhruv Juarez MD Consults: Stephen Moss MD Diagnoses at Discharge Discharge Diagnosis 1. Diverticulitis of colon with perforation: Reason for Visit Reason for Visit: pain in abdomen Brief History: Brendon Momin Jr is a 68 year old male with past medical history of hypertension presents to the ER today because of ongoing left lower quadrant abdominal pain which started acutely today morning. Patient states he has been having diarrhea on and off for last 3 to 4 days with abdominal pain but today pain was unbearable so he presented to the ER. In the ER CT abdomen/pelvis showed diverticulitis with microperforation hence hospitalist service was consulted for further evaluation and management. Patient on examination laying comfortably in bed having tender abdomen. Hospital Course Hospital Course Patient was admitted with abdominal pain and descending colon stranded fat consistent with diverticulitis and microperforation without abscess. He was seen by Dr. Moss and we treated nonoperatively as the patient normalized his white count and his abdominal exam improved. He has tolerated GI soft diet today and is passing gas but not stool. Abdominal exam is benign. He did not eat much on Sunday and Sunday preceding admission Patient is comfortable going home today and will continue on Augmentin for another 7 days. Additionally patient will stop smoking and start nicotine patch. White count initially 10.5 dropped to 8 Physical Exam Narrative: General well-developed well-nourished male in no acute cardiopulmonary stress CV regular rate and rhythm Lungs clear to auscultation bilaterally Abdomen positive bowel tones soft he has minimal left gilberto umbilical and left lower quadrant tenderness but no rebound. Abdomen is obese Calves no tenderness cords pretibial edema Mood and affect normal Discharge Data Studies Completed and Pending Completed Studies During Hospitalization Category Date Time Status CT abdomen pelvis w con* [id number] Stat Cat Scan 11/09/24 17:02 Completed Pending at discharge Category Date Time Status Blood Culture Stat Lab 11/09/24 18:53 Results C.Diff PCR (Lab) Routine Lab 11/09/24 18:29 Ordered Complete Blood Count w/Auto AM LABS Lab 11/12/24 04:00 Ordered Comprehensive Metabolic Panel AM LABS Lab 11/12/24 04:00 Ordered Lactoferrin Routine Lab 11/09/24 18:29 Ordered Magnesium AM LABS Lab 11/12/24 04:00 Ordered OVA and Parasites, Conc and PE Routine Lab 11/09/24 18:29 Ordered Phosphorus AM LABS Lab 11/12/24 04:00 Ordered Salmonella / Shigella / Campy Routine Lab 11/09/24 18:29 Ordered Urine Culture Stat Lab 11/09/24 16:42 Results Radiology Impressions Abdomen/Pelvis CT 11/09/24 17:02 IMPRESSION: 1. Acute diverticulitis of the distal descending colon with evidence of localized microperforation without abscess formation. 2. Other findings as above. COMMENTS: Consistent with the [employer]'s Incidental Findings Committee white paper (J Am Marcos Radiol 2018): Any incidental renal lesion less than 1 cm or classified as too small to characterize, or any incidental cystic renal lesion characterized as simple-appearing, is likely benign. No follow-up imaging is recommended for these lesions per consensus recommendations based on imaging criteria. Laboratory Results WBC 8.00 10^3/uL (3.29-11.43) 11/11/24 04:56 RBC 4.50 10^6/uL (3.85-5.65) 11/11/24 04:56 Hgb 13.30 g/dL (11.27-16.99) 11/11/24 04:56 Hct 39.6 % (37-53) 11/11/24 04:56 MCV 88.0 fl (82-101) 11/11/24 04:56 MCH 29.6 pg (27-33) 11/11/24 04:56 MCHC 33.6 g/dL (30-55) 11/11/24 04:56 RDW 13.7 % (12.1-15.1) 11/11/24 04:56 Plt Count 255 10^3/cmm (157-399) 11/11/24 04:56 MPV 9.3 fL (7.4-10.4) 11/11/24 04:56 Neut % (Auto) 61.3 % 11/11/24 04:56 Lymph % (Auto) 27.3 % 11/11/24 04:56 [place] % (Auto) 9.5 % 11/11/24 04:56 Eos % (Auto) 0.8 % 11/11/24 04:56 Baso % (Auto) 0.6 % 11/11/24 04:56 Neut # (Auto) 4.91 10^3/uL (1.8-7.7) 11/11/24 04:56 Lymph # (Auto) 2.2 10^3/uL (0.8-4.8) 11/11/24 04:56 [place] # (Auto) 0.8 10^3/uL (0.2-0.9) 11/11/24 04:56 Eos # (Auto) 0.1 10^3/uL (0.0-0.8) 11/11/24 04:56 Baso # (Auto) 0.1 10^3/uL (0.0-0.1) 11/11/24 04:56 Nucleated RBC % (auto) 0 % 11/11/24 04:56 Nucleated RBCs # 0.0 /100WBC 11/11/24 04:56 Sodium 140 mmol/L (136-145) 11/11/24 04:56 Potassium 3.9 mmol/L (3.5-5.1) 11/11/24 04:56 Chloride 102 mmol/L (98-107) 11/11/24 04:56 Carbon Dioxide 27 mmol/L (22-29) 11/11/24 04:56 Anion Gap 14.9 (5-19) 11/11/24 04:56 BUN 9 mg/dL (8-23) 11/11/24 04:56 Creatinine 1.2 mg/dL (0.7-1.2) 11/11/24 04:56 GFR Calculation 60.4 mL/min (90-130) L 11/11/24 04:56 Glucose 105 mg/dL (65-115) 11/11/24 04:56 Estimat Average Glucose 123 11/09/24 16:14 Hemoglobin A1c 5.9 % (4.0-6.0) 11/09/24 16:14 Calculated Osmolality 289 mOsm/kg (285-295) 11/11/24 04:56 Lactic Acid 1.2 mmol/L (0.5-2.2) 11/09/24 16:15 Calcium 8.7 mg/dL (8.5-10.5) 11/11/24 04:56 Phosphorus 2.2 mg/dL (2.5-4.5) L 11/11/24 04:56 Magnesium 2.0 mg/dL (1.7-2.3) 11/11/24 04:56 Iron 61 ug/dL (59-158) 11/09/24 16:14 TIBC 286 mcg/dl 11/09/24 16:14 % Saturation 21.3 % (20-50) 11/09/24 16:14 Unsat Iron Binding 225 ug/dL (112-347) 11/09/24 16:14 Total Bilirubin 0.4 mg/dL (0.15-1.2) 11/11/24 04:56 AST 22 U/L (0-40) 11/11/24 04:56 ALT 39 U/L (0-41) 11/11/24 04:56 Alkaline Phosphatase 165 U/L (40-130) H 11/11/24 04:56 Total Protein 6.8 g/dL (6.6-8.7) 11/11/24 04:56 Albumin 3.4 g/dL (3.5-5.2) L 11/11/24 04:56 Globulin 3.4 g/dL (1.3-4.6) 11/11/24 04:56 Triglycerides 174 mg/dL (0-150) H 11/10/24 05:38 Cholesterol 164 mg/dL (0-200) 11/10/24 05:38 LDL Cholesterol, Calc 90 mg/dL (50-129) 11/10/24 05:38 HDL Cholesterol 39 mg/dL (60-100) L 11/10/24 05:38 LDL/HDL Ratio 2.31 RATIO (0.00-3.22) 11/10/24 05:38 Cholesterol/HDL Ratio 4.21 mg/dL (1.0-5.00) 11/10/24 05:38 Lipase 30 U/L (13-60) 11/09/24 16:14 Vitamin B12 475 pg/mL (232-1245) 11/09/24 16:14 Folate 5.7 ng/mL (4.5-32.2) 11/10/24 05:38 Procalcitonin 0.12 ng/mL (0-0.5) 11/10/24 05:38 TSH 1.89 uIU/mL (0.27-4.20) 11/09/24 16:14 Urine Color Yellow (Yellow) 11/09/24 16:42 Urine Appearance Clear (CLEAR) 11/09/24 16:42 Urine pH 6.0 (5-7) 11/09/24 16:42 Ur Specific [place] 1.019 (1.005-1.030) 11/09/24 16:42 Urine Protein 1+ (Negative) A 11/09/24 16:42 Urine Glucose (UA) Negative (Normal) 11/09/24 16:42 Urine Ketones Trace (Negative) 11/09/24 16:42 Urine Blood 2+ (Negative) A 11/09/24 16:42 Urine Nitrate Negative (Negative) 11/09/24 16:42 Urine Bilirubin Negative (Negative) 11/09/24 16:42 Urine Urobilinogen 1.0 mg/dL (Negative) 11/09/24 16:42 Ur Leukocyte Esterase 1+ (Negative) A 11/09/24 16:42 Urine RBC 11-20 /hpf (0-2) H 11/09/24 16:42 Urine WBC 21-50 /hpf (0-5) H 11/09/24 16:42 Ur Squamous Epith Cells 0-5 /hpf (0-5) 11/09/24 16:42 Amorphous Sediment Not Reportable 11/09/24 16:42 Urine Bacteria 1+ /hpf (NONE) H 11/09/24 16:42 Hyaline Casts 1.65 /lpf 11/09/24 16:[address] Abd/Pel: Radiologist's impression: FINDINGS: Liver: Normal. No mass. Gallbladder and biliary ducts: Normal. No calcified stones. No ductal dilation. Pancreas: Normal. No ductal dilation. Spleen: There are multiple punctate splenic calcifications consistent with old granulomatous disease. Adrenal glands: Normal. No mass. Kidneys and ureters: There are multiple simple renal cysts bilaterally of varying size. There is a nonobstructing 2 mm calculus in the midpole region of the left kidney. Stomach and bowel: There is a short segment of circumferential bowel wall thickening in the distal ascending colon accompanied by paracolic fat stranding. There are 3 extraluminal tiny air bubbles posterior to the colon, image 63 series 3. No paracolic abscess however. Appendix: No evidence of appendicitis. Intraperitoneal space: See Stomach and bowel finding. Vasculature: Unremarkable. No abdominal aortic aneurysm. Lymph nodes: Unremarkable. No enlarged lymph nodes. Urinary bladder: Unremarkable as visualized. Reproductive: Unremarkable as visualized. Bones/joints: Grade 1 retrolisthesis at L3-L4 with moderate disc degeneration and [id number] bilateral foramina stenosis. Soft tissues: Unremarkable. CT/CT abdomen pelvis w con* [id number] IMPRESSION: 1. Acute diverticulitis of the distal descending colon with evidence of localized microperforation without abscess formation. 2. Other findings as above. COMMENTS: Consistent with the [employer]'s Incidental Findings Committee white paper (J Am Marcos Radiol 2018): Any incidental renal lesion less than 1 cm or classified as too small to characterize, or any incidental cystic renal lesion characterized as simple-appearing, is likely benign. No follow-up imaging is recommended for these lesions per consensus recommendations based on imaging criteria. Vitals Last Vital Signs Temp 97.4 F L 11/11/24 11:28 Pulse 65 11/11/24 11:28 Resp 15 11/11/24 11:28 BP 140/89 11/11/24 11:28 Pulse Ox 96 11/11/24 11:28 O2 Del Method Room Air 11/11/24 11:28 Discharge Plan Discharge Patient Disposition: Home Condition: Stable Prescriptions: New acetaminophen 325 mg Tablet 650 mg PO Q6H PRN (Reason: Mild/Mod Pain Or Temp >/= 101) Qty: 30 0RF magnesium hydroxide [Milk of Magnesia] 400 mg/5 mL Suspension 30 ml PO DAILY PRN (Reason: Constipation (see protocol)) Qty: 355 0RF docusate sodium 100 mg Capsule 100 mg PO BID Qty: 60 0RF amoxicillin-pot clavulanate 875-125 mg tablet 1 tab PO Q8H Qty: 21 0RF polyethylene glycol 3350 [Miralax] 17 gram powder in packet 17 g PO DAILY 30 Days Qty: 30 0RF nicotine 14 mg/24 hr patch 24 hour 1 patch transdermal DAILY Qty: 7 0RF nicotine 7 mg/24 hr patch 24 hour 1 patch transdermal DAILY Qty: 14 0RF Rx Instructions: Start after the week of 14 mg patches Continued amlodipine 5 mg tablet 5 mg PO DAILY Qty: 30 0RF lisinopril 10 mg tablet 20 mg PO DAILY Qty: 60 0RF Superbeets 2 cap PO DAILY [employer] OK for DC: Surgery Discharge Order = DC NOW: Discharge Order (Routine); Ordered 11/11/24 Ordered By: Dhruv Juarez Referrals: Stephen Moss MD [Physician, General Surgery] - 2 weeks Milka Burnham NP [Nurse Practitioner, Family Practice] - 11/17/24 10:40 am Discharge Diet: GI Soft Discharge Activity: Increase activity as tolerated Patient Instructions: Amoxicillin/Clavulanate Potassium (By mouth), Polyethylene Glycol 3350 (By mouth), Diverticulitis (GEN), GI (Gastrointestinal) Soft Diet (DC), Opioid Safety, Patient Portal & [place] Instructions Activity Restrictions/Additional Instructions: Take antibiotics till complete. Start nicotine patches with 14 mg daily and then after a week switch to 7 mg daily. Return if worsened abdominal pain fevers or not able to pass gas and stool Discharge Attestations Time Spent in Discharge Care*: greater than 30 min Time Spent in Smoking Cessation: 5 minutes Quality Metrics Clinical Quality Measures [ No reported AMI, CVA or VTE this stay] Coding Level of Care Code 04322 Diagnoses Diverticulitis of colon with perforation K57.20 Time Spent (min) 40
[2024-11-11 12:19] VITALS: BP 140/89; PULSE 65; RESP 15; TEMP 36.3; O2SAT 96
--- NOTE | 2024-11-11 12:48 | PC.NURSE ---
Discharge instructions provided to pt. NO questions or concerns voiced at this time. Pt to private vehicle with all belongings via wheelchair.
== END 2024-11-11 12:49 | disposition home or self-care (01) | DRG 392 ==
LOC: ER 18:32 → MEDSURG 19:38
PROVIDERS: Emergency Medicine; Admitting Provider Student in an Organized Health Care Education/Training Program; Emergency Provider General Practice; Visit Provider Internal Medicine
DX: K57.20 Diverticulitis of large intestine with perforation and abscess without bleeding (principal); I10 Essential (primary) hypertension; F17.210 Nicotine dependence, cigarettes, uncomplicated
CPT/HCPCS: 36415; 74177; 80053; 80061; 81001; 82607; 82746; 83036; 83540; 83550; 83605; 83690; 83735; 84100; 84145; 84443; 85025; 87040; 87077; 87086; 87186; 94664; 96365; 96372; 96375; 99285; J1644; J2470; J2543; J3490; J7030; J9999

== ENCOUNTER 2025-03-01 14:38 | Emergency (ER) | payer SELFPAY ==
[2025-03-01 14:42] VITALS: BP 174/103; PULSE 90; TEMP 36.4; O2SAT 97; BMI 30.1
--- NOTE | 2025-03-01 14:58 | CTR_ITS ---
PROCEDURE INFORMATION: Exam: CT Head Without Contrast Exam date and time: 03/01/2025 3:29 PM Age: 69 years old Clinical indication: Injury or trauma; Fall; Blunt trauma (contusions or hematomas) TECHNIQUE: Imaging protocol: Computed tomography of the head without contrast. Radiation optimization: All CT scans at this facility use at least one of these dose optimization techniques: automated exposure control; mA and/or kV adjustment per patient size (includes targeted exams where dose is matched to clinical indication); or iterative reconstruction. COMPARISON: CT facial bones wo con* [id number] 03/01/2025 3:29 PM RADIATION DOSE METRICS: Total DLP (mGy-cm): 1171.6 FINDINGS: Brain: Brain parenchyma is developmentally normal. There is no visible hemorrhage or mass lesion. No abnormal calcifications are seen. No ischemic changes are suspected. Cerebral ventricles: No ventriculomegaly. Paranasal sinuses: Paranasal sinuses are clear. Mastoid air cells: Visualized mastoid air cells are well aerated. Orbital cavities: The globes are unremarkable. Bones: There is no acute fracture, lytic, or blastic lesion.. Soft tissues: Soft tissue scalp swelling is seen over the region of the nose and [id number]-right forehead. CT/CT head wo con* [id number] IMPRESSION: 1. Soft tissue swelling over the frontal regions. 2. No evidence of underlying parenchymal injury, fracture, or globe injury.
--- NOTE | 2025-03-01 14:58 | CTR_ITS ---
PROCEDURE INFORMATION: Exam: CT Maxillofacial Without Contrast Exam date and time: 03/01/2025 3:29 PM Age: 69 years old Clinical indication: Injury or trauma; Fall; Blunt trauma (contusions or hematomas); Head/scalp and forehead and orbit/periorbital; Without loss of consciousness; Left TECHNIQUE: Imaging protocol: Computed tomography of the face without contrast. Radiation optimization: All CT scans at this facility use at least one of these dose optimization techniques: automated exposure control; mA and/or kV adjustment per patient size (includes targeted exams where dose is matched to clinical indication); or iterative reconstruction. COMPARISON: CT head wo con* [id number] 03/01/2025 3:29 PM RADIATION DOSE METRICS: Total DLP (mGy-cm): 686.2 FINDINGS: Paranasal sinuses: No air-fluid levels. Orbital cavities: Orbits are normal. Globes are unremarkable. Teeth: The patient is edentulous. Bones: There is no acute fracture, lytic, or blastic lesion. Soft tissues: Scalp soft tissue swelling is seen over the frontal bones with some surface irregularity suggesting concomitant laceration overlying the left supraorbital ridge. No foreign bodies are evident. Other findings: Remainder of the study is unremarkable. CT/CT facial bones wo con* [id number] IMPRESSION: 1. No evidence of maxillofacial fracture. 2. Forehead contusion with left supraorbital small laceration. No evidence of foreign body or underlying globe injury.
--- NOTE | 2025-03-01 15:07 | W.ED.TRAUMA ---
Documented by User: Linda Marquez MD 03/01/25 17:34 HPI - Trauma General: Chief Complaint: Trauma Stated Complaint: tree nova collapsed 15 ft + Time Seen by Provider: 03/01/25 14:55 Source: patient Mode of arrival: ambulatory Limitations: no limitations History of Present Illness: 69-year-old male states that he is there hunting this morning and his tree stand fell he fell roughly 12 to 15 feet onto the ground hit his head. Does have a laceration over his left eyebrow complains of a headache. He denies any loss of consciousness denies any neck pain. States he also landed on his left leg is having some left hip and thigh pain he rates a 3 out of 10 he states has been able to ambulate since the event. Denies any other injuries Related Data Home Medications ?Medication ?Instructions ?Recorded ?Confirmed Superbeets 2 cap PO DAILY 11/10/24 03/01/25 lisinopril 20 mg tablet 20 mg PO DAILY 03/01/25 03/01/25 Previous Rx's ?Medication ?Instructions ?Recorded amlodipine 5 mg tablet 5 mg PO DAILY #30 tabs 01/28/24 acetaminophen 325 mg tablet 650 mg (2 x 325 mg) PO Q6H PRN 11/11/24 Mild/Mod Pain Or Temp >/= 101 #30 tabs Allergies Allergy/AdvReac Type Severity Reaction Status Date / Time No Known Allergies Allergy Verified 03/01/25 14:53 Review of Systems Musc: Reports: extremity pain PFSH ED PFSH: Medical History Smoking greater than 40 pack years Hypertension Family History Grandfather Pancreatic cancer Mother Breast cancer Social History Smoking and tobacco/nicotine status: current every day tobacco/nicotine user Alcohol intake: never Substance/Drug Use: never Adopted: No Caregiver/support person: Yes Lives independently: Yes Household members: family Housing: House service: Yes Physical Exam Const: COMMON NORMALS: no acute distress, patient oriented x3 and healthy appearing HENMT: COMMON NORMALS: normocephalic HEAD & SCALP: normocephalic OTHER: Laceration noted left forehead Eye: COMMON NORMALS: Equal, round and reactive pupils present and EOMs intact bilaterally PUPIL: Yes Equal, round and reactive pupils present Neck/C-Spine: COMMON NORMALS: full ROM and supple CERVICAL SPINE: No Cervical spine tenderness Chest: COMMONS NORMALS: normal inspection of the chest and normal palpation of entire chest wall Resp: COMMON NORMALS: normal respiratory effort, No retractions, No use of accessory muscles and clear to auscultation bilaterally AUSCULTATION: clear to auscultation bilaterally Cardio: COMMON NORMALS: regular rate, regular rhythm and No murmurs present (Cardio) RATE: regular rate RHYTHM: regular rhythm GI: COMMON NORMALS: Normal to inspection, nondistended, normoactive bowel sounds present, Soft to palpation, non-tender and no masses PALPATION: Yes Soft to palpation Extremity: COMMON NORMALS: full ROM NARRATIVE EXTREMITY EXAM: Slight tenderness to her right hip with no obvious deformities Neuro: COMMON NORMALS: patient oriented x3, moves all extremities and no focal motor deficits Psych: COMMON NORMALS: mental status grossly normal, Normal thought process present and cooperative THOUGHT PROCESS: Normal thought process present Skin: COMMON NORMALS: no rashes or lesions noted and no wounds GENERAL SKIN EXAM: no rashes or lesions noted Course Vital Signs: Vital signs: Vital Signs Temperature 97.5 F L 03/01/25 14:42 Pulse Rate 85 03/01/25 17:23 Blood Pressure 169/94 03/01/25 17:23 Pulse Oximetry 95 03/01/25 17:23 Oxygen Delivery Me thod Room Air 03/01/25 16:30 MDM - Trauma Medical Decision Making Brendon presents after falling out of a tree stand prior to arrival. Patient does have a head laceration differential includes skull fracture, intracranial hemorrhage. Patient CT scan here of his head and face showed no signs of intracranial hemorrhage or fracture. Does have a laceration to his head that was repaired by midlevel wittke he had no other signs of injuries noted patient is able to ambulate here. Complained of some light leg pain but he refused his x-rays of hip and femur as he states that he ambulates without any difficulty. He is to have sutures removed in 7 days did go over imaging with him he is to return if worsening he understands agrees to plan. Medical Records I reviewed the patient's medical records. Lab Data Radiology Impressions Face CT 03/01/25 14:58 IMPRESSION: 1. No evidence of maxillofacial fracture. 2. Forehead contusion with left supraorbital small laceration. No evidence of foreign body or underlying globe injury. Head CT 03/01/25 14:58 IMPRESSION: 1. Soft tissue swelling over the frontal regions. 2. No evidence of underlying parenchymal injury, fracture, or globe injury. All radiology interpretation(s) finalized by discharge Discharge Plan Discharge Patient Disposition: Home Clinical Impression: Laceration of head Fall Qualifiers: Encounter type: initial encounter Qualified Code(s): W19.XXXA - Unspecified fall, initial encounter Condition: Stable Prescriptions: No Action amlodipine 5 mg tablet 5 mg PO DAILY Qty: 30 0RF Superbeets 2 cap PO DAILY acetaminophen 325 mg Tablet 650 mg PO Q6H PRN (Reason: Mild/Mod Pain Or Temp >/= 101) Qty: 30 0RF lisinopril 20 mg tablet 20 mg PO DAILY Discharge Orders: Discharge ED (Routine); Ordered 03/01/25 Ordered By: Linda Marquez Referrals: Milka Burnham NP [Primary Care Provider, Family Practice] - 4-7 days Discharge Diet: Advance as tolerated Discharge Activity: Resume usual activity Patient Instructions: Care For Your Stitches (ED), Head Laceration (ED) Activity Restrictions/Additional Instructions: suture removal in 7 days Print Language: Arabic Coding Level of Care Code ED Vehicle Calibration Engineer for Chg Fwd Documented by User: NATALYA Viveros 03/02/25 00:58 HPI - Trauma General: Chief Complaint: Trauma Stated Complaint: tree nova collapsed 15 ft + Time Seen by Provider: 03/01/25 14:55 Related Data Home Medications ?Medication ?Instructions ?Recorded ?Confirmed Superbeets 2 cap PO DAILY 11/10/24 03/01/25 lisinopril 20 mg tablet 20 mg PO DAILY 03/01/25 03/01/25 Previous Rx's ?Medication ?Instructions ?Recorded amlodipine 5 mg tablet 5 mg PO DAILY #30 tabs 01/28/24 acetaminophen 325 mg tablet 650 mg (2 x 325 mg) PO Q6H PRN 11/11/24 Mild/Mod Pain Or Temp >/= 101 #30 tabs Allergies Allergy/AdvReac Type Severity Reaction Status Date / Time No Known Allergies Allergy Verified 03/01/25 14:53 PFSH ED PFSH: Medical History Smoking greater than 40 pack years Hypertension Family History Grandfather Pancreatic cancer Mother Breast cancer Social History Smoking and tobacco/nicotine status: current every day tobacco/nicotine user Alcohol intake: never Substance/Drug Use: never Adopted: No Caregiver/support person: Yes Lives independently: Yes Household members: family Housing: House service: Yes Procedures Laceration Laceration 1: Site: face Side (If applicable): left Size (cm): 8 Depth: simple, single layer and involves muscle layer Local Anesthetic: lidocaine 1% Amount of anesthesia used (mL): 5 Pre-repair: wound explored and irrigated extensively Skin layer closed with: nylon Size (cm): 4-0 Number of sutures: 7 Technique: simple, interrupted Subcutaneous layer closed with: vicryl Size: 4-0 Number of sutures: 4 Technique: running Muscle layer closed with: vicryl Size: 4-0 Number of sutures: 2 Technique: simple, interrupted Laceration 2: Site: face Size (cm): 3 Depth: simple, single layer Local Anesthetic: lidocaine 1% Amount of anesthesia used (mL): 2 Skin layer closed with: nylon Size (cm): 4-0 Number of sutures: 3 Course ED course: I was consulted for sutures of the face. This was completed and made a laceration section. Vital Signs: Vital signs: Vital Signs Temperature 97.5 F L 03/01/25 14:42 Pulse Rate 85 03/01/25 17:23 Blood Pressure 169/94 03/01/25 17:23 Pulse Oximetry 95 03/01/25 17:23 Oxygen Delivery Me thod Room Air 03/01/25 16:30 MDM - Trauma Lab Data Radiology Impressions Face CT 03/01/25 14:58 IMPRESSION: 1. No evidence of maxillofacial fracture. 2. Forehead contusion with left supraorbital small laceration. No evidence of foreign body or underlying globe injury. Head CT 03/01/25 14:58 IMPRESSION: 1. Soft tissue swelling over the frontal regions. 2. No evidence of underlying parenchymal injury, fracture, or globe injury. Discharge Plan Discharge Patient Disposition: Home Clinical Impression: Laceration of head Fall Qualifiers: Encounter type: initial encounter Qualified Code(s): W19.XXXA - Unspecified fall, initial encounter Condition: Stable Prescriptions: No Action amlodipine 5 mg tablet 5 mg PO DAILY Qty: 30 0RF Superbeets 2 cap PO DAILY acetaminophen 325 mg Tablet 650 mg PO Q6H PRN (Reason: Mild/Mod Pain Or Temp >/= 101) Qty: 30 0RF lisinopril 20 mg tablet 20 mg PO DAILY Discharge Orders: Discharge ED (Routine); Ordered 03/01/25 Ordered By: Linda Marquez Referrals: Milka Burnham MANAGER FACILITY [Primary Care Provider, Family Practice] - 4-7 days Discharge Diet: Advance as tolerated Discharge Activity: Resume usual activity Patient Instructions: Care For Your Stitches (ED), Head Laceration (ED) Activity Restrictions/Additional Instructions: suture removal in 7 days Print Language: Arabic Coding Level of Care Code ED Vehicle Calibration Engineer for Dea Amaro
[2025-03-01 15:17] VITALS: BP 128/99; PULSE 84; O2SAT 96
--- NOTE | 2025-03-01 15:24 | PC.NURSE ---
Pt wounds to face cleansed with NS and pat dry. Currently left open to air until after CT scan.
[2025-03-01] MEDS: HYDROcodone-acetaminophen 5-325 mg Tablet 1 TAB PO (16:28)
[2025-03-01 16:30] VITALS: BP 152/87; PULSE 86; O2SAT 95
[2025-03-01 17:23] VITALS: BP 169/94; PULSE 85; O2SAT 95
== END 2025-03-01 17:14 | disposition home or self-care (01) ==
PROVIDERS: Emergency Provider Emergency Medicine
DX: S01.81XA Laceration without foreign body of other part of head, initial encounter (principal); W17.89XA Other fall from one level to another, initial encounter; Z72.0 Tobacco use; I10 Essential (primary) hypertension
CPT/HCPCS: 12013; 12054; 70450; 70486; 99284; J9999